=== PATIENT | female | born 1995 | race African-American/Black ===

== ENCOUNTER 2016-10-13 19:54 | Emergency (ER) | payer OTHER ==
[~2016-10-13] VITALS: Ht 172.7 cm; Wt 113.4 kg
[2016-10-13 22:10] VITALS: BP 151/97
[2016-10-13 22:13] LABS: BILIRUBIN,URINE NEGATIVE (NEG); GLUCOSE,URINE NEGATIVE (NEG); NITRITE,URINE NEGATIVE (NEG); PROTEIN,URINE NEGATIVE (NEG-TRACE)
[2016-10-13 22:24] LABS: BACTERIA,URINE FEW /HPF (0-FEW); RBC,URINE 0 /HPF (0-2)
[2016-10-13 22:25] LABS: SQUAMOUS EPITHELIAL CELL,UR MOD /LPF
--- NOTE | 2016-10-13 23:00 | PHYS DOC ---
Past Medical History Past Medical History: No Pertinent History Past Surgical History: No Surgical History Alcohol Use: None Drug Use: None Adult General Chief Complaint Chief Complaint: VAGINAL PROBLEM HPI HPI Patient is a 21 year old female who presents here today secondary to chronic abdominal pain ever since her IUD was placed. Patient reports that she had her IUD placed approximately 2 years ago and initially she was having just some mild discomfort however over the last 6 months she reports the discomfort has increased. Patient reports that she has gone to her [facility] doctor at approximately one month ago to see if she can have her removed and they set her up with an appointment and the end of October. Patient is requesting that we assist her with removal of her IUD at this time. Patient reports that there is no change in the discomfort that she's been having over the last couple months however she just feels frustrated and wants her IUD removed. Patient denies any vaginal discharge. Patient denies any dysuria frequency or urgency. Patient denies any fevers cough cold vomiting diarrhea or other discomforts. Patient's physical exam was unremarkable. Patient's abdomen was soft nontender nondistended there is no rebound or guarding. Patient did not have any tenderness to palpation in her right lower quadrant or at Naidu's point. Patient does not present with any signs or symptoms OB concerning for an acute surgical abdomen. Patient's pelvic exam was unremarkable. Patient had no vaginal discharge. Patient's cervical cuff was non-erythematous. There is no friability. There was an IUD string visible at the cervical os. Agents ER hospital course was significant for removal of her IUD. I discussed with the patient risks and benefits of IUD removal. Patient is agreeable to having this removed here in the ED. During the pelvic exam the IUD was visualized and using Kemi forceps the string was clasped and using very minimal pressure the IUD was removed in whole. After removal of the IUD the IUD was was inspected and confirmation of no retained parts of the IUD was confirmed. I discussed with the patient that she should still follow up with her OB doctor for further evaluation and reevaluation if she has any further pains. I discussed with the patient that she is now susceptible to and that she should refrain from sexual activity until she discusses with her OB doctor alternative treatments for contraception. Cultures were obtained and sent to the lab. Patient tolerated the procedure well. Review of Systems Review of Systems Constitutional: Denies fever or chills [] Eyes: Denies change in visual acuity, redness, or eye pain [] HENT: Denies nasal congestion or sore throat [] All other review of systems are negative except as documented in the history of present illness portion. Allergies Allergies Allergies Coded Allergies Type Severity Reaction Last Updated Verified No Known Drug Allergies 10/13/16 No Physical Exam Physical Exam Constitutional: Well developed, well nourished, no acute distress, non-toxic appearance. [] HENT: Normocephalic, atraumatic, bilateral external ears normal, oropharynx moist, no oral exudates, nose normal. [] Eyes: PERRLA, EOMI, conjunctiva normal, no discharge. [] Neck: Normal range of motion, no tenderness, supple, no stridor. [] Cardiovascular:Heart rate regular rhythm, no murmur [] Lungs & Thorax: Bilateral breath sounds clear to auscultation [] Abdomen: Bowel sounds normal, soft, no tenderness, no masses, no pulsatile masses. [] Skin: Warm, dry, no erythema, no rash. [] Back: No tenderness, no CVA tenderness. [] Extremities: No tenderness, no cyanosis, no clubbing, ROM intact, no edema. [] Neurologic: Alert and oriented X 3, normal motor function, normal sensory function, no focal deficits noted. [] Psychologic: Affect normal, judgement normal, mood normal. [] Current Patient Data Vital Signs Vital Signs Date Time Temp Pulse Resp B/P Pulse Ox O2 Delivery O2 Flow Rate FiO2 10/13/16 21:40 98.5 86 20 164/102 99 Room Air 98.5 Lab Values Laboratory Tests Test 10/13/16 21:50 10/13/16 22:01 Urine Color Yellow Urine Clarity Clear Urine pH 6.0 Urine Specific [place] 1.015 Urine Protein Negativemg/dL (NEG-TRACE) Urine Glucose (UA) Negativemg/dL (NEG) Urine Ketones (Stick) Negativemg/dL (NEG) Urine Blood Negative (NEG) Urine Nitrite Negative (NEG) Urine Bilirubin Negative (NEG) Urine Urobilinogen Dipstick 1.0mg/dL (0.2 mg/dL) Urine Leukocyte Esterase Trace (NEG) Urine RBC 0/HPF (0-2) Urine WBC 1-4/HPF (0-4) Urine Squamous Epithelial Cells Mod/LPF Urine Bacteria Few/HPF (0-FEW) Urine Mucus Slight/LPF POC Urine HCG, Qualitative Hcg negative (Negative) EKG EKG [] Radiology/Procedures Radiology/Procedures [] Procedure: Removal of IUD performed by Dr. Barrientos without any complications. Please see above. Course & Med Decision Making Course & Med Decision Making Pertinent Labs and Imaging studies reviewed. (See chart for details) [] Dragon Disclaimer Dragon Disclaimer This electronic medical record was generated, in whole or in part, using a voice recognition dictation system. Departure Departure Impression: Primary Impression: Encounter for IUD removal Disposition: HOME, SELF-CARE Condition: IMPROVED Referrals: NO PCP (PCP) Patient Instructions: Levonorgestrel intrauterine device (IUD) Additional Instructions: Your IUD was removed today in the ER. Please follow up with her doctor for further evaluation. AN BUITRAGO MD Oct 13, 2016 23:00
== END 2016-10-13 23:05 | disposition home or self-care (01) ==
LOC: ER 19:54
DX: Z30.432 Encounter for removal of intrauterine contraceptive device (principal); G89.29 Other chronic pain; R10.9 Unspecified abdominal pain
CPT/HCPCS: 81001; 81025; 87086; 99284